=== PATIENT | female | born 1945 | race Two or more races ===

== ENCOUNTER → 2020-01-09 | Outpatient (CLI) | payer OTHER ==
--- NOTE | 2020-01-09 16:03 | Diagnostic Imaging Report ---
Indication: Abdominal pain, suspected pancreatic mass Technique: Precontrast spiral acquisitions obtained through the pancreas. After IV administration nonionic contrasts, arterial and venous phase post contrast spiral acquisitions obtained through the abdomen and pelvis. Multiplanar reconstructions were generated. Total dose length product 1712 mGycm. CTDIvol(s) 40 mGy. Radiation dose was minimized using automated exposure control Comparison: none Findings: Small nonenhancing cystic lesion is seen at the pancreatic body tail junction posteriorly, measures 8 mm in diameter. A somewhat ill-defined low-attenuation area is seen in the pancreatic neck, measures proximal 10 x 3 mm, could represent a small cystic lesion as well. Another small cystic lesion measuring 7 x 4 mm is seen within the uncinate process. Yet another 3 mm more questionable lesion is seen within the incision 8, although this could also represent just focal ectasia of the accessory pancreatic duct. No definite solid lesion is demonstrated. No peripancreatic edema. The main pancreatic duct is slightly prominent in caliber. No calcifications. A few prominent but not frankly enlarged peripancreatic lymph nodes are demonstrated, largest measuring 17 mm long axis dimension. Within segment 6 of the liver, image 65 of series 9, there is a low-attenuation lesion which is too small to characterize. On image 72 of series 7 9, in the periphery of the right hepatic lobe, segment 6, there is an ill-defined 12 mm low-attenuation lesion which demonstrates nonspecific soft tissue attenuation. There is a 10 mm soft tissue attenuation lesion in the dome of segment 8, image 34 series 9. A subcentimeter low-attenuation lesion is seen on image 75 of series 9 in segment 5. There is equivocal slight hepatic surface nodularity and generalized nodular appearance to the parenchymal attenuation, the latter particularly on the venous phase images.. The spleen is unremarkable. The left adrenal is unremarkable. The right adrenal demonstrates a 2.8 cm fat attenuation mass consistent with a myelolipoma. The right kidney demonstrates multiple cysts. Both kidneys demonstrate multiple subcentimeter low-attenuation lesions which are too small to characterize. No retroperitoneal or mesenteric mass or adenopathy. No pelvic mass or adenopathy. Uterus is absent. The appendix is normal. Moderate retained fecal material seen throughout the colon. There is no evidence of colonic diverticulosis or diverticulitis. No small bowel distention or small bowel wall thickening. No free or loculated intraperitoneal gas or fluid. There is a small sliding-type hiatal hernia. The stomach and duodenum are otherwise unremarkable. The included lung bases demonstrate a calcified granuloma on the right. There is some atelectasis or scarring in the inferior lingula. There is a subpleural 3 mm nodule in the right middle lobe, image 21 series 8. The bones demonstrate degenerative spondylosis changes. Impression: 3 or 4 small subcentimeter cystic lesions within the pancreas. Most likely represent small branch intraductal papillary mucinous neoplasms. They could also represent small pseudocysts. Recommend annual surveillance with either pancreatic protocol CT or MRI No definite solid pancreatic lesion demonstrated. Multiple subtle indeterminate lesions within the liver. The possibility that these represent metastatic deposits should be considered. Given the small size, there is a small chance of these could represent small cysts. They could also represent regenerative nodules in the setting of cirrhosis. Consider further evaluation with MRI to better determine if cystic or solid Equivocal minimal hepatic surface nodularity, could indicate early cirrhotic change Generalized hepatic parenchymal nodularity, likewise could indicate cirrhotic changes. 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 No further follow-up necessary or gas incidental finding small sliding-type hiatal hernia 3 mm subpleural right middle lobe nodule. No further follow-up necessary if there is no significant smoking history or other risk factors for lung carcinoma. Recommend 12 month follow-up if there are significant risk factors Incidental findings as noted, including right pulmonary old granulomatous disease, left inferior lingular atelectasis or scarring, small hiatal hernia, prior hysterectomy Findings discussed by phone with Dr. Leal at the time of interpretation The CT scanner at [facility] is accredited by the [employer] and the scans are performed using protocols designed to limit radiation exposure to as low as reasonably achievable to attain images of sufficient resolution adequate for diagnostic evaluation.
== END | disposition home or self-care (01) ==
LOC: CAT 10:01
DX: R10.9 Unspecified abdominal pain (principal); D17.79 Benign lipomatous neoplasm of other sites; K44.9 Diaphragmatic hernia without obstruction or gangrene; Z90.710 Acquired absence of both cervix and uterus; N28.1 Cyst of kidney, acquired
CPT/HCPCS: 74170; Q9967